=== PATIENT | female | born 1990 | race Caucasian/White ===

== ENCOUNTER 2020-01-25 15:25 | Emergency (ER) | payer MEDICAID ==
[~2020-01-25] VITALS: Ht 149.9 cm; Wt 85.0 kg
[2020-01-25 16:56] LABS: CHLORIDE 110 mEq/L (98-107)
[2020-01-25 16:57] LABS: BASOPHILS % 0.3 % (0.0-2.0); EOSINOPHILS % 1.8 % (0.0-5.0); HEMATOCRIT. 38.5 % (36.0-48.0); HEMOGLOBIN. 13.3 g/dL (12.0-16.0); LYMPHOCYTES % 23.9 % (20.0-50.0); MEAN CORPUSCULAR HEMOGLOBIN 30.3 pg (28.0-32.0); MEAN PLATELET VOLUME 8.5 fl (7.4-10.4); MONOCYTES % 5.3 % (2.0-8.0); NEUTROPHILS % 68.7 % (40.0-76.0); PLATELET 300 x1000/uL (130-400); RED BLOOD CELL COUNT 4.37 mill/uL (4.2-5.4); RED CELL DISTRIBUTION WIDTH 13.8 % (11.6-14.6)
[2020-01-25 18:00] LABS: CLARITY URINE CLOUDY (CLEAR); COLOR URINE DARK YELLOW (YELLOW); KETONES URINE TRACE (NEGATIVE); LEUKOCYTE ESTERASE URINE 3+ (NEGATIVE); NITRITE URINE NEGATIVE (NEGATIVE); OCCULT BLOOD URINE NEGATIVE (NEGATIVE); PH URINE 6.5 (4.5-8.0); PROTEIN URINE TRACE (NEGATIVE); SPECIFIC GRAVITY URINE 1.032 (1.005-1.030)
[2020-01-25] MEDS ORDERED: CEPHALEXIN 250MG CAPSULE PO ONE (18:15)
[2020-01-25 18:19] VITALS: BP 111/58
== END 2020-01-25 18:20 | disposition home or self-care (01) ==
LOC: ER 15:25
DX: O23.42 Unspecified infection of urinary tract in pregnancy, second trimester (principal); Z3A.18 18 weeks gestation of pregnancy; Z98.890 Other specified postprocedural states
CPT/HCPCS: 36415; 71045; 80053; 81003; 85025; 87804; 99284

== ENCOUNTER 2020-05-06 23:57 | Observation (INO) | payer MEDICAID ==
[~2020-05-06] VITALS: Ht 149.9 cm; Wt 82.1 kg
[2020-05-07] MEDS ORDERED: LACTATED RINGERS 1,000 ML IV SCH (01:00)
[2020-05-07 02:37] LABS: CLARITY URINE CLEAR (CLEAR); COLOR URINE YELLOW (YELLOW); KETONES URINE NEGATIVE (NEGATIVE); LEUKOCYTE ESTERASE URINE NEGATIVE (NEGATIVE); NITRITE URINE NEGATIVE (NEGATIVE); OCCULT BLOOD URINE NEGATIVE (NEGATIVE); PH URINE 6.5 (4.5-8.0); PROTEIN URINE NEGATIVE (NEGATIVE); SPECIFIC GRAVITY URINE 1.008 (1.005-1.030)
[2020-05-07] MEDS ORDERED: PNV1TABL50 MT (03:05)
== END 2020-05-07 03:30 | disposition home or self-care (01) ==
LOC: 8 EST LDRP 23:57
PROVIDERS: ADMIT Obstetrics & Gynecology; ATTEND Obstetrics & Gynecology
DX: O26.893 Other specified pregnancy related conditions, third trimester (principal); R10.30 Lower abdominal pain, unspecified; Z3A.33 33 weeks gestation of pregnancy
CPT/HCPCS: 81003; 99281; G0378

== ENCOUNTER 2020-06-05 14:46 | Emergency (ER) | payer MEDICAID ==
[~2020-06-05] VITALS: Ht 149.9 cm; Wt 85.0 kg
[~2020-06-05 14:46] MED LIST: PNV1TABL50 MT
[2020-06-05] MEDS ORDERED: ACETAMINOPHEN 325MG TABLET PO STA (15:30)
[2020-06-05 15:50] LABS: BASOPHILS % 0.4 % (0.0-2.0); EOSINOPHILS % 0.8 % (0.0-5.0); HEMATOCRIT. 31.9 % (36.0-48.0); HEMOGLOBIN. 10.9 g/dL (12.0-16.0); LYMPHOCYTES % 26.9 % (20.0-50.0); MEAN CORPUSCULAR HEMOGLOBIN 28.2 pg (28.0-32.0); MEAN CORPUSCULAR VOLUME 82.9 fL (81.0-99.0); MEAN PLATELET VOLUME 7.6 fl (7.4-10.4); MONOCYTES % 5.3 % (2.0-8.0); NEUTROPHILS % 66.6 % (40.0-76.0); PLATELET 330 x1000/uL (130-400); RED BLOOD CELL COUNT 3.85 mill/uL (4.2-5.4); RED CELL DISTRIBUTION WIDTH 13.5 % (11.6-14.6)
[2020-06-05 15:52] LABS: CHLORIDE 112 mEq/L (98-107)
[2020-06-05 15:58] LABS: INR 0.9
[2020-06-05 18:19] LABS: CLARITY URINE CLEAR (CLEAR); COLOR URINE YELLOW (YELLOW); KETONES URINE 1+ (NEGATIVE); LEUKOCYTE ESTERASE URINE 3+ (NEGATIVE); NITRITE URINE NEGATIVE (NEGATIVE); OCCULT BLOOD URINE NEGATIVE (NEGATIVE); PH URINE 6.5 (4.5-8.0); PROTEIN URINE NEGATIVE (NEGATIVE); SPECIFIC GRAVITY URINE 1.021 (1.005-1.030)
[2020-06-05 19:30] VITALS: BP 101/66
== END 2020-06-05 19:32 | disposition home or self-care (01) ==
LOC: ER 14:46
DX: O26.893 Other specified pregnancy related conditions, third trimester (principal); G44.209 Tension-type headache, unspecified, not intractable; M79.10 Myalgia, unspecified site; I49.9 Cardiac arrhythmia, unspecified; Z98.890 Other specified postprocedural states; Z3A.37 37 weeks gestation of pregnancy
CPT/HCPCS: 36415; 80053; 81003; 85025; 93005; 99285

== ENCOUNTER → 2020-06-07 | Outpatient (CLI) | payer MEDICAID | END | disposition home or self-care (01) | LOC: LAB 13:04 | DX: Z11.59 Encounter for screening for other viral diseases (principal) | CPT/HCPCS: C9803; U0003 ==

== ENCOUNTER 2020-06-09 04:58 | Inpatient (IN) | payer MEDICAID ==
[~2020-06-09] VITALS: Ht 149.9 cm; Wt 85.3 kg
[2020-06-09] MEDS ORDERED: CITRIC ACID/SODIUM CITRATE SOLN 30ML UDC PO ONE ×2 (06:45→07:45)
[2020-06-09] MEDS ORDERED: LACTATED RINGERS 1,000 ML IV SCH (07:20)
[2020-06-09 07:50] LABS: BASOPHILS % 0.2 % (0.0-2.0); EOSINOPHILS % 1.5 % (0.0-5.0); HEMATOCRIT. 33.3 % (36.0-48.0); HEMOGLOBIN. 10.9 g/dL (12.0-16.0); LYMPHOCYTES % 36.2 % (20.0-50.0); MEAN CORPUSCULAR HEMOGLOBIN 27.4 pg (28.0-32.0); MEAN CORPUSCULAR VOLUME 83.4 fL (81.0-99.0); MEAN PLATELET VOLUME 9.2 fl (7.4-10.4); MONOCYTES % 5.2 % (2.0-8.0); NEUTROPHILS % 56.9 % (40.0-76.0); PLATELET 334 x1000/uL (130-400); RED BLOOD CELL COUNT 3.99 mill/uL (4.2-5.4); RED CELL DISTRIBUTION WIDTH 13.7 % (11.6-14.6)
[2020-06-09 07:53] LABS: INR 0.9
[2020-06-09] MEDS ORDERED: OXYTOCIN 10 UNITS/ML 1ML ONE ×2 (07:59→09:16)
[2020-06-09] MEDS ORDERED: ONDANSETRON HCL 4MG/2ML INJ ONE (08:00)
[2020-06-09] MEDS ORDERED: KETOROLAC 60MG/2ML VIAL IM ONE (08:00)
[2020-06-09] MEDS ORDERED: MORPHINE SULFATE/PF 1MG/ML 10ML AMP ONE (08:01)
[2020-06-09 08:37] LABS: CLARITY URINE CLEAR (CLEAR); COLOR URINE YELLOW (YELLOW); KETONES URINE TRACE (NEGATIVE); LEUKOCYTE ESTERASE URINE 1+ (NEGATIVE); NITRITE URINE NEGATIVE (NEGATIVE); OCCULT BLOOD URINE NEGATIVE (NEGATIVE); PROTEIN URINE NEGATIVE (NEGATIVE); SPECIFIC GRAVITY URINE 1.021 (1.005-1.030)
[2020-06-09 08:56] LABS: OPIATES URINE SCREEN NEGATIVE (NEGATIVE)
[2020-06-09 08:57] LABS: *AMPHETAMINES SCREEN URINE NEGATIVE (NEGATIVE); *BARBITURATES SCREEN URINE NEGATIVE (NEGATIVE); *BENZODIAZEPINES SCREEN URINE NEGATIVE (NEGATIVE); *COCAINE SCREEN URINE NEGATIVE (NEGATIVE); CANNABINOID URINE SCREEN NEGATIVE (NEGATIVE); PHENCYCLIDINE URINE SCREEN NEGATIVE (NEGATIVE)
[2020-06-09 08:58] LABS: METHADONE URINE SCREEN NEGATIVE (NEGATIVE)
[2020-06-09] MEDS ORDERED: EPHEDRINE SULFATE 50MG/ML VIAL ONE (09:11)
[2020-06-09] MEDS ORDERED: BISACODYL 10MG SUPP PR PRN (09:45)
[2020-06-09] MEDS ORDERED: IBUPROFEN 400MG TABLET PO PRN (09:45)
[2020-06-09] MEDS ORDERED: DEXT 5%/LR + PITOCIN 20UNITS/L 1,000 ML IV SCH (09:45)
[2020-06-09] MEDS ORDERED: RHO(D) IMMUNE GLOBULIN 300 MCG/SYR IM PRN (09:45)
[2020-06-09 13:15] VITALS: BP 103/50
[2020-06-09 13:51] LABS: HEPATITIS B SURFACE ANTIGEN NEGATIVE
[2020-06-09 14:00] VITALS: BP 92/41
[2020-06-09 20:00] VITALS: BP 91/47
[2020-06-09] MEDS: KETOROLAC 30MG/ML VIAL IV PRN (20:51)
[2020-06-10] VITALS: BP 96/49
[2020-06-10 04:00] VITALS: BP 98/52
[2020-06-10] MEDS: KETOROLAC 30MG/ML VIAL IV PRN (05:46)
[2020-06-10 07:47] LABS: BASOPHILS % 0.7 % (0.0-2.0); HEMATOCRIT. 27.3 % (36.0-48.0); HEMOGLOBIN. 9.1 g/dL (12.0-16.0); LYMPHOCYTES % 32.3 % (20.0-50.0); MEAN CORPUSCULAR HEMOGLOBIN 27.6 pg (28.0-32.0); MEAN CORPUSCULAR VOLUME 82.8 fL (81.0-99.0); MEAN PLATELET VOLUME 7.9 fl (7.4-10.4); MONOCYTES % 5.5 % (2.0-8.0); NEUTROPHILS % 60.5 % (40.0-76.0); PLATELET 263 x1000/uL (130-400); RED CELL DISTRIBUTION WIDTH 13.5 % (11.6-14.6)
[2020-06-10 08:00] VITALS: BP 84/46
[2020-06-10] MEDS ORDERED: DIPHENHYDRAMINE 25MG CAPSULE PO PRN (09:30)
[2020-06-10] MEDS: IBUPROFEN 800MG TABLET PO PRN ×2 (09:44→17:53)
[2020-06-10 16:00] VITALS: BP 90/49
[2020-06-10 19:40] VITALS: BP 95/44
[2020-06-11 00:30] VITALS: BP 90/52
[2020-06-11 03:00] VITALS: BP 103/66
[2020-06-11] MEDS: IBUPROFEN 800MG TABLET PO PRN (04:39)
[2020-06-11] MEDS ORDERED: IBUP-2030 PO (05:57)
[2020-06-11 07:34] VITALS: BP 93/50
== END 2020-06-11 11:50 | disposition home or self-care (01) | DRG 540 ==
LOC: 8 EST LDRP 04:58 → OBSVTOIN 04:58 → 8EST 14:27
PROVIDERS: ADMIT Obstetrics & Gynecology; ATTEND Obstetrics & Gynecology
PROC: 10D00Z1 Extraction of Products of Conception, Low, Open Approach (ICD-10-PCS; principal; 2020-06-09)
DX: O34.219 Maternal care for unspecified type scar from previous cesarean delivery (principal); O69.81X0 Labor and delivery complicated by cord around neck, without compression, not applicable or unspecified; Z30.2 Encounter for sterilization; Z37.0 Single live birth; Z3A.38 38 weeks gestation of pregnancy
CPT/HCPCS: 36415; 80305; 81003; 85025; 86592; 86703; 86762; 86850; 86900; 86920; 87340; 88307; J1885; J2274; J2405; J2590; J3490; J7120; Q0163